=== PATIENT | female | born 1995 | race Two or more races ===

== ENCOUNTER → 2025-08-17 | Emergency (ER) | payer OTHER ==
[~2025-08-17] VITALS: Ht 167.6 cm; Wt 81.6 kg
[~2025-08-17] MED LIST: 0.9 % SODIUM CHLORIDE 1,000 ML IV SCH; MORPHINE SULFATE 4 MG/ML CARTRIDGE IV STA; NORFLEX100MG PO
[2025-08-17 08:45] LABS: BASO % 0.1 % (0.1-1.2); EOS # 0.00 (0.04-0.54); EOS % 0.0 % (0.7-7.0); LYMPH # 1.05 (1.18-3.74); LYMPH % 11.3 % (19.3-53.1); MEAN PLATELET VOLUME 10.60 fl (9.4-12.4); MONO # 0.33 (0.24-0.82); MONO % 3.5 % (4.7-12.5); NEUT # 7.88 (1.56-6.13); NEUT % 84.7 % (34.0-71.1); RED CELL DISTRIBUTION WIDTH 11.9 % (11.6-14.4)
[2025-08-17 08:47] LABS: ERYTHROCYTE SEDIMENTATION RATE 29 mm/hr (0-20)
[2025-08-17 09:25] LABS: ALT/SGPT 20.0 U/L (12-78); AST/SGOT 13.0 U/L (15-37); BILIRUBIN TOTAL 0.62 mg/dL (0.3-1.2); BUN CREA RATIO 19.0 (7.0-25.0); CREATININE SERUM 0.59 mg/dL (0.55-1.02); GFR 120.5; GLOBULINA 4.1 G/DL (2.4-3.5); GLUCOSE FASTING 90.0 mg/dL (65-100); OSMOLALITY SERUM 275.0 MOSM/KG (275-295)
[2025-08-17 09:37] LABS: INR 1.05
[2025-08-17 11:04] LABS: URINE APPEARANCE Clear; URINE BILIRRUBIN Negative (NEGATIVE); URINE BLOOD Negative; URINE COLOR Yellow; URINE GLUCOSE Negative (NEGATIVE); URINE LEUKOCYTE Negative; URINE NITRATE Negative; URINE PROTEIN 30 (NEGATIVE); URINE UROBILINOGEN 0.2 E.U./dl
[2025-08-17 11:05] LABS: URINE BACTERIA 508.9 uL (0.0-1933); URINE EPITHELIAL CELLS 18.3 uL (0.0-38.8); URINE RBC 15.8 uL (0.0-20.8); URINE WBC 6.8 uL (0.0-23.2)
[2025-08-17 11:42] LABS: URINE CAST 0.56 uL (0.0-1.40); URINE KETONE 80 (NEGATIVE)
== END | disposition home or self-care (01) ==
LOC: ER 05:52
PROVIDERS: Physician Assistant Medical
DX: N83.291 Other ovarian cyst, right side (principal)